=== PATIENT | female | born 1985 | race American Indian/Alaskan Native ===

== ENCOUNTER 2018-03-03 11:17 | Emergency (ER) | payer OTHER, BC ==
[~2018-03-03] VITALS: Ht 162.6 cm; Wt 81.7 kg
[~2018-03-03 11:17] MED LIST: AMOXICILLIN500 MG PO; ASPIRIN EC81 MG; BENTYL10 MG PO; CLEOCIN HCL300 MG PO; DOXYCYCLINE HY100 MG PO; NORCO 10-325 T1 EACH PO; NORCO 5-325 TA1 EACH PO; PERCOCET 5-3251 EACH PO; PLAQUENIL200 MG PO; ZOFRAN ODT4 MG PO; ZOFRAN ODT8 MG PO; ZOFRAN4 MG PO
[2018-03-03] MEDS ORDERED: OMEPRAZOLE20 MG PO (11:36)
[2018-03-03] MEDS ORDERED: ADULT ASPIRIN R81 MG PO (11:36)
== END 2018-03-03 12:25 | disposition home or self-care (01) ==
LOC: ED 11:17
DX: Z77.21 Contact with and (suspected) exposure to potentially hazardous body fluids (principal); Z88.8 Allergy status to other drugs, medicaments and biological substances; Z88.5 Allergy status to narcotic agent; Z79.82 Long term (current) use of aspirin; Z79.899 Other long term (current) drug therapy
CPT/HCPCS: 36415; 86703; 86707; 86803; 87350; 99283

== ENCOUNTER 2021-10-14 17:28 | Emergency (ER) | payer OTHER ==
[~2021-10-14] VITALS: Ht 162.6 cm; Wt 81.7 kg
[~2021-10-14 17:28] MED LIST changes: +ADULT ASPIRIN R81 MG PO; +OMEPRAZOLE20 MG PO
--- OUTSIDE RECORDS SUMMARY | 2021-10-14 17:32 | XMS ---
PreManage Notification: YENIFER [place] [employer] Final Inspector Events No recent Security Events currently on file CRITERIA MET - PDMP CARE PROVIDERS Rosenda Lord Nurse Practitioner: Family Current ETIOLOGIST PHONE: Unknown Moisés has no Care Guidelines for this patient. Nikunj VISIT COUNT (12 MO.) 1 USHA Gacría TOTAL 1 NOTE: Visits indicate total known visits. ED/UCC VISIT TRACKING (12 MO.) 10/14/2021 17:30 [facility] Villatoro OR TYPE: Emergency COMPLAINT: - INJURED RT FOOT/DEHYDRATION INPATIENT VISIT TRACKING (12 MO.) No inpatient visits to display in this time frame [email or web address]
[2021-10-14] MEDS ORDERED: PROPRANOLOL HCL10 MG PO (18:52)
[2021-10-14] MEDS ORDERED: GRALISE300 MG PO (18:53)
[2021-10-14] MEDS ORDERED: ONDANSETRON ODT8 MG PO (20:25)
[2021-10-14] MEDS ORDERED: MOBIC15 MG PO (20:25)
== END 2021-10-14 20:50 | disposition home or self-care (01) ==
LOC: ED 17:28
DX: R55 Syncope and collapse (principal); S90.31XA Contusion of right foot, initial encounter; Z91.048 Other nonmedicinal substance allergy status; Z88.5 Allergy status to narcotic agent; Z88.8 Allergy status to other drugs, medicaments and biological substances; Z79.899 Other long term (current) drug therapy; W19.XXXA Unspecified fall, initial encounter; X50.1XXA Overexertion from prolonged static or awkward postures, initial encounter
CPT/HCPCS: 36415; 73630; 80048; 85025; 99284-25; J7030

== ENCOUNTER 2023-04-01 12:04 | Observation (INO) | payer OTHER ==
[~2023-04-01] VITALS: Ht 162.6 cm; Wt 70.8 kg
--- OUTSIDE RECORDS SUMMARY | ~2023-04-01 | XMS | Continuity of Care Document ---
Demographics + + + | Address | [address] | | | [place] [address] | + + + | Preferred Language | Unknown | + + + | Marital Status | Legally | + + + | Gnosticist Affiliation | Unknown | + + + | Race | Unknown | + + + | Ethnic Group | Not or | + + + Author + + + | Author | [facility] | + + + | Organization | [facility] | + + + | Address | [address] | | | [place] [address] | + + + | Phone | | + + + Care Team Providers + + + + | Care Interceptor Operator Name | Role | Phone | + + + + Unavailable | Unavailable | + + + + Unavailable | Unavailable | + + + + Allergies No information. Encounters No information. Functional Status No information. Immunizations No information. Medications No information. Problems No information. Procedures + + + + | date | description | facility | + + + + | 2022-10-31 00:00 | Cosmetic No Charge Visit | [facility] | | | | | + + + + Results/Labs +--------+--------+ +---------+--------+---------+ | test | date | facility | value | unit | notes | +--------+--------+ +---------+--------+---------+ + + | Result panel 1 | + + + + + + + + + | No Results | (no date) | [facility] | No Results | (missing) | (missing) | | | | [facility] | | | | | [facility] | | | | + + + + + + + + + | Result panel 2 | + + + + + + + + + | No Results | (no date) | [facility] | No Results | (missing) | (missing) | | | | [facility] | | | | | | [facility] | | | | + + + + + + + Social History + + + + | date | description | facility | + + + + | 2022-11-07 00:00 | Unknown if ever smoked | [facility] | | | | | + + + + | 2023-02-01 00:00 | Unknown if ever smoked | [facility] | | | | | + + + + Vital Signs + + +---------+---------+ | date | measurement | value | units | + + +---------+---------+ | 2022-10-31 00:00 | temperature_metric | 36.28 | C | | | | | | + + +---------+---------+ | 2022-10-31 00:00 | | 97.3 | F | | | temperature_standar | | | | | d | | | + + +---------+---------+ | 2023-01-25 00:00 | heart_rate | 82 | /min | + + +---------+---------+ | 2023-01-25 00:00 | o2_saturation | 99 | % | + + +---------+---------+ | 2023-01-25 00:00 | temperature_metric | 36.28 | C | | | | | | + + +---------+---------+ | 2023-01-25 00:00 | | 97.3 | F | | | temperature_standar | | | | | d | | | + + +---------+---------+"
--- OUTSIDE RECORDS SUMMARY | ~2023-04-01 | XMS | Continuity of Care Document ---
Demographics + + + | Address | [address] | | | [place] [address] | + + + | Preferred Language | Unknown | + + + | Marital Status | Legally | + + + | Sikhism Affiliation | Unknown | + + + | Race | Unknown | + + + | Ethnic Group | Not or | + + + Author + + + | Author | [facility] | + + + | Organization | [facility] | + + + | Address | [address] | | | [place] [address] | + + + | Phone | | + + + Care Team Providers + + + + | Care Vault Cashier Name | Role | Phone | + [...] 00:00 | Cosmetic No Charge Visit | [facility] | | | [...] 00:00 | Unknown if ever smoked | [facility] | | | | | + + + + | 2023-02-01 00:00 | Unknown if ever smoked | [facility] | | | | | [...]
--- OUTSIDE RECORDS SUMMARY | ~2023-04-01 | XMS | Continuity of Care Document ---
Demographics + + + | Address | [address] | | | [place] [address] | + + + | Preferred Language | Unknown | + + + | Marital Status | Never | + + + | Gnosticism Affiliation | Unknown | + + + | Race | Unknown | + + + | Ethnic Group | Not or | + + + Author + + + | Author | [facility] | + + + | Organization | [facility] | + + + | Address | [address] | | | [place] [address] | + + + | Phone | | + + + Care Team Providers + + + + | Care Stem Roller Operator Name | Role | Phone | + + + + Unavailable | Unavailable | + + + + Unavailable | Unavailable | + + + + Allergies and Intolerances + + + + + + | date | description | facility | reaction | severity | + + + + + + | (no date) | adhesive tape | [facility] | (no reaction) | (no severity) | + + + + + + | (no date) | hydromorphone | [facility] | (no reaction) | (no severity) | + + + + + + | (no date) | SYNTHETIC | [facility] | (no reaction) | (no severity) | | | [facility] | | | | + + + + + + Encounters No information. Functional Status No information. Immunizations No information. Medications No information. Problems No information. Procedures + + + + | date | description | facility | + + + + | 2022-10-31 00:00 | Cosmetic No Charge Visit | [facility] | | | | | + + [...] | | | | | | | [facility] | | | | + + + + + + + + + | Result panel 2 | + + + + + + + + + | No Results | (no date) | [facility] | No Results | (missing) | (missing) | | | | [facility] | | | | | | [facility] | | | | + + + + + + + Social History + + + + | date | description | facility | + + + + | 2022-11-07 00:00 | Unknown if ever smoked | [facility] | | | | | + + + + | 2023-02-01 00:00 | Unknown if ever smoked | [facility] | | | | | [...]
[~2023-04-01 12:04] MED LIST changes: +GRALISE300 MG PO; +MOBIC15 MG PO; +ONDANSETRON ODT8 MG PO; +PROPRANOLOL HCL10 MG PO
[2023-04-01] MEDS ORDERED: BUSPIRONE HCL15 MG PO (13:24)
[2023-04-01] MEDS ORDERED: PRAZOSIN HCL1 MG PO (13:24)
[2023-04-01] MEDS ORDERED: BUPROPION XL150 MG PO (13:24)
[2023-04-01] MEDS ORDERED: CLONAZEPAM1 MG PO (13:25)
[2023-04-01] MEDS ORDERED: WEGOVY2.4 MG/0.7 SUB-Q (13:25)
[2023-04-01 13:44] LABS: BASOPHILS 0.5 % (0-2); EOSINOPHILS 2.5 % (0-6); HEMATOCRIT 42.1 % (35.0-50.0); HEMOGLOBIN 14.1 g/dL (12.0-18.0); LYMPHOCYTES 16.4 % (24-44); MCH 31.3 (27-36); MCHC 33.4 g/dl (30-36); MCV 93.6 fl (81-99); NEUTROPHILS 71.6 % (39-80); PLATELET COUNT 337 K/uL (140-440); RDW 12.7 (10.5-15.0)
[2023-04-01 14:03] LABS: ALBUMIN 3.5 g/dL (3.4-5.0); ALBUMIN/GLOBULIN RATIO 0.97 (1.1-2.4); ANION GAP 14.8 (7-21); BILIRUBIN, TOTAL 0.7 ng/dL (0.2-1.0); BUN/CREATININE RATIO 18.84 (6.0-28.6); CALCIUM 8.6 mg/dL (8.5-10.1); CREATININE, SERUM 0.69 mg/dL (0.55-1.02); MAGNESIUM 1.7 mg/dL (1.8-2.4); POTASSIUM 3.8 mmol/L (3.5-5.1); PROTEIN, TOTAL 7.1 g/dL (6.4-8.2)
[2023-04-01 15:16] LABS: BILIRUBIN, URINE NEGATIVE (negative); BLOOD/HGB, URINE NEGATIVE (Negative); KETONE, URINE SMALL (Negative); LEUK ESTERASE, URINE NEGATIVE (negative); NITRITE, URINE NEGATIVE (negative)
[2023-04-01 19:38] VITALS: BP 117/73
--- NOTE | 2023-04-01 19:44 | NUR ---
BEDSIDE REPORT RECEIVED FROM ED RN. PT TO ROOM 109 VIA STRETCHER. ALERT AND ORIENTED. PT ABLE TO TRANSFER SELF TO BATHROOM AND TO BED. VS OBTAINED, WNL. IVF INFUSING PER ORDER. PT REPORTS ABD PAIN KISHOR 4/10. DENIES NAUSEA. TILE INSPECTOR IN ROOM FOR ADMISSION.
--- NOTE | 2023-04-01 20:15 | NUR ---
ADMISSION ASSESSMENT COMPLETE. SCHEDULED MEDS ADMIN PER EMAR. PRN FOR 5/10 LUQ PAIN ADMIN PER ORDER. PT DENIES NAUSEA. PT AWARE OF NPO STATUS. ORAL CARE SUPPLIES PROVIDED. IVF INFUSING PER ORDER. PT DENIES QUESTIONS OR CONCERNS. PT ORIENTED TO ROOM AND NURSE CALL LIGHT. VISTOR AT BEDSIDE. NO FURTHER NEEDS.
--- NOTE | 2023-04-01 22:19 | NUR ---
PT RESTING IN BED WATCHING TV. REPORTS PAIN TOLERABLE. DENIES NAUSEA. SIGNIFICANT OTHER TO STAY THE NIGHT. LINENS PROVIDED. NO FURTHER NEEDS AT THIS TIME.
--- NOTE | 2023-04-01 23:17 | NUR ---
PATIENT CALLED. EMPTIED HAT WITH 100ML YELLOW URINE. PATIENT REQUESTED MEDS FOR NAUSEA AND FOR PAIN. PRIMARY RN NOTIFIED. FRIEND IN ROOM PROVIDED WITH ICE WATER.
--- NOTE | 2023-04-01 23:31 | NUR ---
PT REPORTS NAUSEA AND 6/10 LUQ PAIN THAT RADIATES TO HER BACK. PRN FOR PAIN AND N/V ADMIN PER EMAR. WARM COMPRESS PROVIDED FOR BACK. NO FURTHER NEEDS. CALL LIGHT IN REACH.
[2023-04-02 01:47] VITALS: BP 98/56
--- NOTE | 2023-04-02 02:06 | NUR ---
PT AWAKE IN BED. VS AND I&O OBTAINED. ASSESSMENT UNCHANGED. PT REPORTS LUQ PAIN 5/10 THAT RADIATES TO HER BACK. REPORTS IMPROVEMENT IN PAIN "NOT STABBING, MORE OF A DULL ACHE" SINCE ADMISSION. PRN FOR PAIN ADMIN PER EMAR. DENIES NAUSEA. NO FURTHER NEEDS. VISITOR RESTING IN RECLINER AT BEDSIDE.
--- NOTE | 2023-04-02 04:41 | NUR ---
PT RESTING IN BED WITH EYES CLOSED. RESPIRATIONS EVEN. CALL LIGHT IN REACH.
[2023-04-02 05:19] VITALS: BP 92/54
[2023-04-02 05:25] LABS: BASOPHILS 0.6 % (0-2); EOSINOPHILS 3.9 % (0-6); HEMATOCRIT 35.6 % (35.0-50.0); HEMOGLOBIN 11.9 g/dL (12.0-18.0); LYMPHOCYTES 32.1 % (24-44); MCH 30.9 (27-36); MCHC 33.4 g/dl (30-36); MCV 92.6 fl (81-99); MONOCYTES 12.4 % (0-12); PLATELET COUNT 276 K/uL (140-440); RBC 3.85 M/ul (4.3-5.7); RDW 12.8 (10.5-15.0)
--- NOTE | 2023-04-02 05:37 | NUR ---
VS AND I&O OBTAINED. BP NOTED LESS THAN PARAMETERS. MANUAL BP 98/56. PT C/O HEADACHE. LOW URINE OUTPUT NOTED. MD NOTIFIED. NEW TELEPHONE ORDERS RECEIVED VERIFIED WITH READBACK METHOD.
[2023-04-02 05:41] LABS: ALBUMIN 2.8 g/dL (3.4-5.0); ALBUMIN/GLOBULIN RATIO 0.97 (1.1-2.4); ANION GAP 10.4 (7-21); BILIRUBIN, TOTAL 0.5 ng/dL (0.2-1.0); BUN/CREATININE RATIO 15.21 (6.0-28.6); CALCIUM 7.8 mg/dL (8.5-10.1); CREATININE, SERUM 0.46 mg/dL (0.55-1.02); MAGNESIUM 2.3 mg/dL (1.8-2.4); PHOSPHORUS, INORGANIC 3.4 mg/dL (2.5-4.9); POTASSIUM 3.4 mmol/L (3.5-5.1); PROTEIN, TOTAL 5.7 g/dL (6.4-8.2)
--- NOTE | 2023-04-02 07:44 | NUR ---
Patient resting in bed, eyes closed, respirations even and non labored. Patient has no notable distress. IV fluid bolus infusing at this time. Personal supplies and call light within reach.
[2023-04-02] MEDS ORDERED: ONDANSETRON ODT4 MG PO ×2 (07:45→11:14)
[2023-04-02 09:27] VITALS: BP 102/70
--- NOTE | 2023-04-02 09:32 | NUR ---
MED REC COMPLETE
--- NOTE | 2023-04-02 10:00 | NUR ---
Admin 0.5mg dilaudid IV for reports of 4/10 abdominal pain. Patient denies nausea at this time. IV patent, kcl infusing per provider order. Call light within reach.
[2023-04-02] MEDS ORDERED: HYDROCODON-ACE1 EA10 PO (11:14)
[2023-04-02 11:45] VITALS: BP 108/72
--- NOTE | 2023-04-02 11:48 | NUR ---
Spoke with Sherrill. She lives in a house without steps in town. No issues getting in or out of the home. She is active and does not use any DME. Denies any needs for any assist at home. No issues with cooking, cleaning, or shopping. Will go home today, denies needs.
== END 2023-04-02 12:55 | disposition home or self-care (01) ==
LOC: ED 12:04 → MS 12:06
PROVIDERS: Emergency Medicine; ADMIT Family Medicine; ATTEND Family Medicine
DX: K52.9 Noninfective gastroenteritis and colitis, unspecified (principal); R11.2 Nausea with vomiting, unspecified; E83.42 Hypomagnesemia; E87.6 Hypokalemia; D68.51 Activated protein C resistance; Z91.040 Latex allergy status
CPT/HCPCS: 36415; 74177; 80053; 81001; 81003; 83690; 83735; 84100; 84703; 85025; C9113; J0780; J1170; J1650; J1885; J2405; J2765; J3475; J3480; J3490; J7030; J7060; J7121; Q9967

== ENCOUNTER 2024-05-19 23:04 | Emergency (ER) | payer OTHER ==
[~2024-05-19] VITALS: Ht 162.6 cm; Wt 72.0 kg
[~2024-05-19 23:04] MED LIST changes: +BUPROPION XL150 MG PO; +BUSPIRONE HCL15 MG PO; +CLONAZEPAM1 MG PO; +HYDROCODON-ACE1 EA10 PO; +ONDANSETRON ODT4 MG PO; +PRAZOSIN HCL1 MG PO; +WEGOVY2.4 MG/0.7 SUB-Q
[2024-05-19] MEDS ORDERED: MORPHINE SULFATE 4 MG/ML VIAL IV ONE (23:15)
[2024-05-19] MEDS ORDERED: ondansetron HCL 4 MG/2 ML VIAL IV ONE (23:15)
[2024-05-19 23:26] LABS: EOSINOPHILS 1.7 % (0-6); HEMATOCRIT 43.1 % (35.0-50.0); LYMPHOCYTES 31.7 % (24-44); MCH 31.5 (27-36); MCHC 34.8 g/dl (30-36); MCV 90.6 fl (81-99); MONOCYTES 8.5 % (0-12); NEUTROPHILS 57.1 % (39-80); PLATELET COUNT 373 K/uL (140-440); RBC 4.76 M/ul (4.3-5.7); RDW 13.1 (10.5-15.0)
[2024-05-19] MEDS ORDERED: SODIUM CHLORIDE 0.9% 500 ML IV ONE (23:30)
[2024-05-19 23:37] LABS: ALBUMIN 3.8 g/dL (3.4-5.0); ALBUMIN/GLOBULIN RATIO 0.88 (1.1-2.4); ANION GAP 13.7 (7-21); BILIRUBIN, TOTAL 0.6 ng/dL (0.2-1.0); BUN/CREATININE RATIO 11.26 (6.0-28.6); CREATININE, SERUM 0.71 mg/dL (0.55-1.02); POTASSIUM 3.7 mmol/L (3.5-5.1); PROTEIN, TOTAL 8.1 g/dL (6.4-8.2)
[2024-05-20] MEDS ORDERED: diphenhydrAMINE HCL 50 MG/ML VIAL IV ONE (00:30)
[2024-05-20 00:37] LABS: BILIRUBIN, URINE NEGATIVE (negative); BLOOD/HGB, URINE NEGATIVE (Negative); KETONE, URINE NEGATIVE (Negative); LEUK ESTERASE, URINE NEGATIVE (negative); NITRITE, URINE NEGATIVE (negative); PH, URINE 6.5 (5-7)
[2024-05-20] MEDS ORDERED: DEXAMETHASONE SOD PHOS 4 MG/ML VIAL IV ONE (00:45)
[2024-05-20] MEDS ORDERED: CARAFATE1 GM PO (00:57)
[2024-05-20] MEDS ORDERED: TRAMADOL HCL50 MG PO (00:57)
[2024-05-20] MEDS ORDERED: ONDANSETRON ODT8 MG PO (00:57)
[2024-05-20] MEDS ORDERED: LORazepam 2 MG/ML VIAL IV ONE (01:15)
[2024-05-20] MEDS ORDERED: ONDANSETRON 4 MG TAB ODT SL ONE (01:45)
[2024-05-20 01:51] VITALS: BP 122/88
== END 2024-05-20 01:52 | disposition home or self-care (01) ==
LOC: ED 23:04
PROVIDERS: Family Medicine
DX: M79.18 Myalgia, other site (principal); D68.51 Activated protein C resistance; Z86.73 Personal history of transient ischemic attack (TIA), and cerebral infarction without residual deficits; Z90.49 Acquired absence of other specified parts of digestive tract; Z91.040 Latex allergy status; Z91.048 Other nonmedicinal substance allergy status; Z88.8 Allergy status to other drugs, medicaments and biological substances; Z79.85 Long-term (current) use of injectable non-insulin antidiabetic drugs; Z79.899 Other long term (current) drug therapy
CPT/HCPCS: 36415; 74177; 80053; 81003; 83690; 84703; 85025; 96375; 99284-25; A9270; J1100; J1200; J2060; J2270; J2405; J7040; Q9967